=== PATIENT | male | born 1995 | race Asian ===

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

== ENCOUNTER 2017-04-23 16:43 | Emergency (ER) | payer BC ==
[~2017-04-23] VITALS: Ht 170.2 cm; Wt 68.0 kg
[~2017-04-23 16:43] MED LIST: PRED20TA PO
[2017-04-23 16:59] VITALS: BP 127/60
[2017-04-23 17:09] LABS: BILIRUBIN,URINE NEGATIVE (NEG); GLUCOSE,URINE NEGATIVE (NEG); NITRITE,URINE NEGATIVE (NEG); PH,URINE 6.5; PROTEIN,URINE NEGATIVE (NEG-TRACE)
--- NOTE | 2017-04-23 17:12 | PHYS DOC ---
Past Medical History Past Medical History: No Pertinent History Past Surgical History: No Surgical History Alcohol Use: None Drug Use: None Adult General Chief Complaint Chief Complaint: BLOOD IN URINE [facility] Patient is a 22 year old male who presents with abnormal lab results. The patient was seen for a wellness work exam and he had blood in his urine. The patient was instructed to follow-up with the primary care provider but instead presented to the emergency department. He states that he has also had some intermittent nosebleeds. He is not currently having a nosebleed. Review of Systems Review of Systems Constitutional: Denies fever or chills [] Eyes: Denies change in visual acuity, redness, or eye pain [] HENT: See history of present illness Respiratory: Denies cough or shortness of breath [] Cardiovascular: No additional information not addressed in HPI [] GI: Denies abdominal pain, nausea, vomiting, bloody stools or diarrhea [] : See history of present illness Neurologic: Denies headache, focal weakness or sensory changes [] Endocrine: Denies polyuria or polydipsia [] All other systems were reviewed and found to be within normal limits, except as documented in this note. Allergies Allergies Allergies Coded Allergies Type Severity Reaction Last Updated Verified No Known Drug Allergies 10/01/16 No Physical Exam Physical Exam Constitutional: Well developed, well nourished, no acute distress, non-toxic appearance. [] HENT: Normocephalic, atraumatic, bilateral external ears normal, oropharynx moist, no oral exudates, bilateral nares are erythematous, right nare shows evidence of an old scab Eyes: PERRLA, EOMI, conjunctiva normal, no discharge. [] Neck: Normal range of motion, no tenderness, supple, no stridor. [] Cardiovascular:Heart rate regular rhythm, no murmur [] Lungs & Thorax: Bilateral breath sounds clear to auscultation [] Abdomen: Bowel sounds normal, soft, no tenderness, no masses, no pulsatile masses. [] Back: No tenderness, no CVA tenderness. [] Neurologic: Alert and oriented X 3, normal motor function, normal sensory function, no focal deficits noted. [] Psychologic: Affect normal, judgement normal, mood normal. [] Current Patient Data Vital Signs Vital Signs Date Time Temp Pulse Resp B/P (MAP) Pulse Ox O2 Delivery O2 Flow Rate FiO2 04/23/17 16:59 98.8 72 20 100 Room Air 98.8 Lab Values Laboratory Tests Test 04/23/17 17:00 Urine Collection Type Unknown Urine Color Yellow Urine Clarity Clear Urine pH 6.5 Urine Specific [place] 1.025 Urine Protein Negative mg/dL (NEG-TRACE) Urine Glucose (UA) Negative mg/dL (NEG) Urine Ketones (Stick) Negative mg/dL (NEG) Urine Blood Small (NEG) Urine Nitrite Negative (NEG) Urine Bilirubin Negative (NEG) Urine Urobilinogen Dipstick 1.0 mg/dL (0.2 mg/dL) Urine Leukocyte Esterase Negative (NEG) Urine RBC 3-5 /HPF (0-2) Urine WBC 0 /HPF (0-4) Urine Squamous Epithelial Cells Occ /LPF Urine Bacteria 0 /HPF (0-FEW) Urine Mucus Slight /LPF EKG EKG [] Radiology/Procedures Radiology/Procedures [] Course & Med Decision Making Course & Med Decision Making Pertinent Labs and Imaging studies reviewed. (See chart for details) 1. Blood in urine 2. Abnormal lab result 3. Nosebleeds There was a small amount of blood noted on your urinalysis in the emergency department. Given your lack of symptoms I feel the best course of action is for you to follow-up with her primary care provider and establish care to go over these abnormal results. You were given a clinic list of providers who are accepting new patients. Please call them this morning to establish care. There is a small scab noted in your nose. Please do not pick at the scab as it will cause your nose to start bleeding again. It might be more beneficial to use nasal lavage and not to blow her nose until this is completely healed. Again do addressed this with your primary care provider. Feel free to return to the ED if worsening. Dragon Disclaimer Dragon Disclaimer This electronic medical record was generated, in whole or in part, using a voice recognition dictation system. Departure Departure Referrals: NO PCP (PCP) ALLAN HASSAN APRN Apr 23, 2017 17:12
[2017-04-23 17:15] LABS: BACTERIA,URINE 0 /HPF (0-FEW); SQUAMOUS EPITHELIAL CELL,UR OCC /LPF; WBC,URINE 0 /HPF (0-4)
== END 2017-04-23 17:44 | disposition home or self-care (01) ==
LOC: ER 16:43
DX: R31.9 Hematuria, unspecified (principal); R68.89 Other general symptoms and signs; R04.0 Epistaxis
CPT/HCPCS: 81001; 99283

== ENCOUNTER 2018-07-11 19:34 | Emergency (ER) | payer BC ==
[~2018-07-11] VITALS: Ht 170.2 cm; Wt 68.0 kg
[2018-07-11] MEDS ORDERED: FAMOTIDINE 20 MG/2 ML VIAL ONE (19:37)
[2018-07-11] MEDS ORDERED: diphenhydrAMINE 50 MG/ML VIAL ONE (19:37)
[2018-07-11] MEDS ORDERED: methylPREDNISolone SOD SUCC PF 125 MG/2 ML VIAL. ONE (19:38)
[2018-07-11] MEDS ORDERED: EPINEPHrine 1 MG/ML VIAL IM ONE (20:00)
[2018-07-11] MEDS ORDERED: methylPREDNISolone SOD SUCC PF 125 MG/2 ML VIAL. IV ONE (20:00)
[2018-07-11] MEDS ORDERED: diphenhydrAMINE 50 MG/ML VIAL IVP ONE (20:00)
[2018-07-11] MEDS ORDERED: FAMOTIDINE 20 MG/2 ML VIAL IVP ONE (20:00)
[2018-07-11] MEDS ORDERED: EPIPEN 2-P0.3 MG/0.3 IJ (20:08)
[2018-07-11] MEDS ORDERED: PRED50TA PO (20:08)
--- NOTE | 2018-07-11 20:14 | PHYS DOC ---
Past Medical History Past Medical History: No Pertinent History Past Surgical History: No Surgical History Alcohol Use: None Drug Use: None Adult General Chief Complaint Chief Complaint: ALLERGIC REACTION HPI HPI Patient is 23 yo male w/ allergy to shellfish who presents with complaint of rash and facial swelling following crab ingestion. Patient reports he ate crab 2 hours prior to presentation. 1 hr prior to presentation he began having some stomach cramping, periorbital tingling, and mild facial swelling. Symptoms continued to worsen and he presented to ED. Patient has not taken medication to help with symptoms and does not own EpiPens. He currently denies periorbital tingling, trouble breathing or speaking. He denies medication allergies. He reports he does not smoke or use alcohol. Review of Systems Review of Systems Constitutional: Denies fever or chills, Eyes: Denies eye pain. Admits to eyelid swelling causing vision changes. Denies eye pressure from swelling. HENT: Denies nasal congestion or sore throat. Denies throat swelling, tingling, or perceived change in voice. Respiratory: Denies cough or shortness of breath, Cardiovascular: Denies chest pain, palpitations, or chest pressure. GI: Denies nausea, vomiting, bloody stools or diarrhea. Admits to mild abdominal cramping. Musculoskeletal: Denies back pain or joint pain Integument: Admits to new onset diffuse, raised, urticarial rash on face, chest , back. Complete systems were reviewed and found to be within normal limits, except as documented in this note. Current Medications Current Medications Current Medications Medications (Trade) Dose Ordered Sig/[facility] Start Time Stop Time Status Last Admin Dose Admin Diphenhydramine HCl (Benadryl) 50 mg 1X ONCE 07/11/18 20:00 07/11/18 20:01 DC 07/11/18 19:49 50 MG Epinephrine HCl (Adrenalin) 0.3 mg 1X ONCE 07/11/18 20:00 07/11/18 20:01 DC 07/11/18 20:10 0.3 MG Famotidine (Pepcid Vial) 20 mg 1X ONCE 07/11/18 20:00 07/11/18 20:01 DC 07/11/18 19:50 20 MG Methylprednisolone Sodium Succinate (SOLU-Medrol 125MG VIAL) 125 mg 1X ONCE 07/11/18 20:00 07/11/18 20:01 DC 07/11/18 19:50 125 MG Allergies Allergies Allergies Coded Allergies Type Severity Reaction Last Updated Verified shellfish derived Allergy Severe HIVES,ITCHING 07/11/18 Yes Physical Exam Physical Exam Constitutional: Well developed, well nourished, speaking in complete sentences.[ ] HENT: Normocephalic, atraumatic, bilateral external ears normal, oropharynx moist, no oral exudates, nose normal. Eyes: Moderate eyelid swelling. Exam limited d/t swelling. Neck: Normal range of motion, no tenderness, supple, no stridor. [] Cardiovascular:Heart rate regular rhythm, no murmur [] Lungs & Thorax: Bilateral breath sounds clear to auscultation [] Abdomen: Abdomen soft, nontender, nondistended. No masses appreciated. Skin: Warm, dry, diffuse erythema, raised, palpable lesions. Present on face, chest, abdomen, back. Back: No tenderness Neurologic: Alert and oriented X 3, normal motor function, normal sensory function, no focal deficits noted. [] Current Patient Data Vital Signs Vital Signs Date Time Temp Pulse Resp B/P (MAP) Pulse Ox O2 Delivery O2 Flow Rate FiO2 07/11/18 21:21 80 16 119/59 (79) 98 Room Air 07/11/18 19:35 98.1 98.1 EKG EKG [] Radiology/Procedures Radiology/Procedures [] Course & Med Decision Making Course & Med Decision Making Patient is 23 yo male w/ hx of shellfish allergy presents 2 hrs after accidental crab ingestion. Patient reports diffuse eyelid and facial swelling, rash on chest, abdomen, and stomach cramping. Patient denies trouble breathing, swallowing, or change in voice. He did not take medication at home for symptoms. Patient does not have epipens at home. On physical exam patients vitals are WNL, breathing is nonlabored, diffuse urticarial rash present face, chest, abdomen. No periorbital or tongue swelling. Patient treated with solumedrol, benadryl, pepcid, and epinephrine. Patient monitored for TWo hours with resolution of symptoms. Discussed with patient that he was stable for discharge and should return if he has trouble breathing or change in consciousness. Patient advised to follow up with PCP. Patient discharged home with prescription for epipen and advised how to use it. Patient voiced understanding and agreement with the plan. Dragon Disclaimer Dragon Disclaimer This electronic medical record was generated, in whole or in part, using a voice recognition dictation system. Departure Departure Impression: Primary Impression: Allergic reaction Disposition: 01 HOME, SELF-CARE Condition: STABLE Patient Instructions: Anaphylactic Reaction, [id number] Scripts Epinephrine (EPIPEN 2-[place]) 0.3 Mg/0.3 Ml Auto.injct 0.3 MG IJ 1X for 1 Day, #1 SYR 2 Refills Prov: FADIA LEWIS MD 07/11/18 Prednisone (PREDNISONE) 50 Mg Tablet 1 TAB PO DAILY, #5 TAB Prov: FADIA LEWIS MD 07/11/18 FADIA LEWIS MD Jul 11, 2018 20:14
[2018-07-11 21:21] VITALS: BP 119/59
== END 2018-07-11 21:39 | disposition home or self-care (01) ==
LOC: ER 19:34
DX: T78.1XXA Other adverse food reactions, not elsewhere classified, initial encounter (principal); L50.9 Urticaria, unspecified; Z91.013 Allergy to seafood; R10.9 Unspecified abdominal pain; R20.2 Paresthesia of skin
CPT/HCPCS: 96372; 96374; 96375; 99283; J0171; J1200; J2930; J3490